=== PATIENT | male | born 1945 | race Caucasian/White ===

== ENCOUNTER 2018-08-26 08:00 | Day surgery (SDC) | payer OTHER, BC ==
[~2018-08-26] VITALS: Ht 185.4 cm; Wt 81.6 kg
[2018-08-26] MEDS ORDERED: KETOROLAC TROMETHAMINE 30 MG VIAL IVP ONE (10:55)
[2018-08-26] MEDS ORDERED: LIDOCAINE/EPI MPF 1%1:200000 30 ML VIAL INJ ONE (10:55)
[2018-08-26] MEDS ORDERED: MUPIROCIN 2% TOPICAL OINTMENT 22 GM TP ONE (10:55)
[2018-08-26] MEDS ORDERED: LR 1,000 ML IV.SOLN IV ONE (10:55)
[2018-08-26] MEDS ORDERED: ATROPINE SULFATE 0.5 MG/5 ML SYRINGE IVP ONE (10:55)
[2018-08-26] MEDS ORDERED: PROPOFOL 200MG/ 20ML VIAL (DIPRIVAN) IV ONE (10:55)
[2018-08-26] MEDS ORDERED: FAMOTIDINE PF 20 MG/2 ML VIAL IVP ONE (10:55)
[2018-08-26] MEDS ORDERED: OXYMETAZOLINE HCL 0.05% NASAL SPRAY NS ONE (10:55)
[2018-08-26] MEDS ORDERED: ROCURONIUM BROMIDE 10 MG/ML (ZEMURON) IV ONE (10:55)
[2018-08-26] MEDS ORDERED: METOCLOPRAMIDE HCL 10 MG/2 ML VIAL IVP ONE (10:55)
[2018-08-26] MEDS ORDERED: SEVOFLURANE 15 MIN GAS INH ONE (10:55)
[2018-08-26] MEDS ORDERED: BACITRACIN ZINC 15 GM TOPICAL OINTMENT TP ONE (10:55)
[2018-08-26] MEDS ORDERED: NS 1000 ML IV.SOLN IV ONE (10:55)
[2018-08-26] MEDS ORDERED: WATER FOR IRRIGATION,STERILE 1,000 ML IRRIG.SOLN IR ONE (10:55)
[2018-08-26] MEDS ORDERED: ONDANSETRON HCL 4 MG/2 ML VIAL IVP ONE (10:55)
[2018-08-26] MEDS ORDERED: FAMOTIDINE PF 20 MG/2 ML VIAL ONE (12:37)
[2018-08-26] MEDS ORDERED: LR 1,000 ML IV SCH (13:26)
[2018-08-26] MEDS ORDERED: HYDROmorphone 1 MG INJ. 1 MG/ML AMPUL IVP PRN (13:30)
[2018-08-26] MEDS ORDERED: MEPERIDINE HCL/PF 25 MG/ML DISP.SYRIN IVP PRN (13:30)
[2018-08-26] MEDS ORDERED: HYDROmorphone 2 MG/ML VIAL IVP PRN ×2 (13:30)
[2018-08-26 14:45] VITALS: BP_SYST 139
== END 2018-08-26 15:45 | disposition home or self-care (01) ==
LOC: SDS 08:00 → SMU 08:00 → SDS 15:45
PROVIDERS: ATTEND Otolaryngology
DX: H65.93 Unspecified nonsuppurative otitis media, bilateral (principal); J34.2 Deviated nasal septum; J32.9 Chronic sinusitis, unspecified; J34.89 Other specified disorders of nose and nasal sinuses; Z98.890 Other specified postprocedural states; Z79.899 Other long term (current) drug therapy
CPT/HCPCS: 30140; 30520; 31254; 31267; 31296; 69436; 87070; 87075; 87101; 88305; 88311; C1726; J0461; J1885; J2405; J2704; J2765; J3490; J7030; J7120; L8699

== ENCOUNTER 2019-07-07 06:15 | Day surgery (SDC) | payer OTHER, BC ==
[~2019-07-07] VITALS: Ht 185.4 cm; Wt 81.6 kg
[2019-07-07] MEDS ORDERED: OXYMETAZOLINE HCL 0.05% NASAL SPRAY NS ONE (07:50)
[2019-07-07] MEDS ORDERED: PROPOFOL 200MG/ 20ML VIAL (DIPRIVAN) IV ONE (07:50)
[2019-07-07] MEDS ORDERED: MIDAZOLAM HCL 5 MG/5 ML VIAL IVP ONE (07:50)
[2019-07-07] MEDS ORDERED: ROCURONIUM BROMIDE 10 MG/ML (ZEMURON) IV ONE (07:50)
[2019-07-07] MEDS ORDERED: DEXAMETHASONE SOD PHOSPHATE 4 MG/ML VIAL IVP ONE (07:50)
[2019-07-07] MEDS ORDERED: LR 1,000 ML IV.SOLN IV ONE (07:50)
[2019-07-07] MEDS ORDERED: ONDANSETRON HCL 4 MG/2 ML VIAL IVP ONE (07:50)
[2019-07-07] MEDS ORDERED: LIDOCAINE/EPI 1% 1:100000 20 ML VIAL INJ ONE (07:50)
[2019-07-07] MEDS ORDERED: SEVOFLURANE 15 MIN GAS INH ONE (07:50)
[2019-07-07] MEDS ORDERED: fentaNYL CITRATE 250 MCG/5 ML AMP IV ONE (07:50)
[2019-07-07] MEDS ORDERED: LR 1,000 ML IV SCH (08:59)
[2019-07-07] MEDS ORDERED: MORPHINE 4 MG/ML INJ. SYRINGE IVP PRN ×3 (09:00)
[2019-07-07] MEDS ORDERED: ONDANSETRON HCL 4 MG/2 ML VIAL IVP PRN (09:00)
[2019-07-07] MEDS ORDERED: HYDROcodone/ACETAMIN 5-325 MG TAB (NORCO/ VICODIN) PO ONE ×2 (11:45)
[2019-07-07 11:46] VITALS: BP_SYST 155
[2019-07-07] MEDS ORDERED: HYDROcodone/ACETAMIN 5-325 MG TAB (NORCO/ VICODIN) ONE (11:54)
== END 2019-07-07 12:30 | disposition home or self-care (01) ==
LOC: SDS 06:15 → SMU 06:15 → SDS 12:30
PROVIDERS: ATTEND Otolaryngology
DX: H65.23 Chronic serous otitis media, bilateral (principal); J32.8 Other chronic sinusitis; J32.4 Chronic pansinusitis; H68.101 Unspecified obstruction of Eustachian tube, right ear; H65.03 Acute serous otitis media, bilateral; J30.1 Allergic rhinitis due to pollen; J32.9 Chronic sinusitis, unspecified; J34.2 Deviated nasal septum
CPT/HCPCS: 31255; 31256; 31298; 69436; 87070 ×2; 87075; 87101; 88305; C1726; J1100; J2250; J2405; J2704; J3010; J7120; L8699; 88311